=== PATIENT | female | born 1955 | race Caucasian/White ===

== ENCOUNTER → 2024-11-19 | Outpatient (CLI) | payer MEDICARE, MEDICAID, SELFPAY ==
--- NOTE | 2024-11-19 08:30 | XR_ITS ---
Examination: Screening digital mammography, bilateral Computer aided detection 3-D breast Tomosynthesis, bilateral Date and time of exam: November 19, 2024 0806 hrs. Compared to mammograms dating to June 08, 2017 Indication: Screening Technique: Nonmagnified MLO, CC views of the breasts to been obtained, reconstructed from 3-D Tomosynthesis images. R2 computer aided detection program utilized for evaluation of suspicious masses and/or abnormal calcifications. 3-D Tomosynthesis images obtained. Findings: Scattered areas of bilateral granular density. Benign calcifications. No interval suspicious masses Impression: BI-RADS category II: Benign Findings. Recommend 1 year follow-up mammogram.
== END | disposition home or self-care (01) ==
LOC: CDIM 07:55
PROVIDERS: PCP Internal Medicine; Referring Provider Internal Medicine; Visit Provider Internal Medicine
DX: Z12.31 Encounter for screening mammogram for malignant neoplasm of breast (principal); R92.323 Mammographic fibroglandular density, bilateral breasts; R92.1 Mammographic calcification found on diagnostic imaging of breast
CPT/HCPCS: 77063; 77067

== ENCOUNTER 2025-01-04 09:05 | Outpatient (RCR) | payer MEDICARE, MEDICAID, SELFPAY ==
--- NOTE | 2025-01-04 10:10 | CTCFLWUP_ITS ---
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 Patient with squamous SCCA right frontal nasal region underwent right total ethmoidectomy right femi bullosa right medial maxillectomy 08/06/2022 at [place]. Postop XRT as recommended 11/14/2022 via VMAT 5940 cGy completed. PET scan 12/29/[address] scan 01/06/2023 showed only postop changes CT scan 02-24 showed no recurrent tumor but bilateral thyroid nodules noted. At [facility] the ENT thought that this could be watched for the time being. Ultrasound 05/12/2024 2 solid nodules right lobe and 3 solid nodules left lobe. And most recent eval 08/05/2024 at [facility] department had a good checkup. A#! SCCA right frontal nasal region surgery [facility] 08/06/2022 postop XRT 5940 cGy 11/14/2022 A#2. Thus far imaging studies as well as ENT eval no sign of recurrence. A#3. Thyroid nodules noted on CT and ultrasound. CT along with new PET will be ordered. [facility] felt this could be watched for now. A#4. Follow-up in 3 months. Labs ordered by Dr Rg. Cc: Reema Rg MD Electronically signed by: Lui Gillis M.D. 01/04/2025 10:08 AM
== END 2025-01-31 23:59 | disposition home or self-care (01) ==
LOC: SCTC 09:05
PROVIDERS: PCP Internal Medicine; Referring Provider Internal Medicine; Visit Provider Radiology Therapeutic Radiology
DX: Z08 Encounter for follow-up examination after completed treatment for malignant neoplasm (principal); Z85.22 Personal history of malignant neoplasm of nasal cavities, middle ear, and accessory sinuses; Z90.09 Acquired absence of other part of head and neck; Z92.3 Personal history of irradiation; E04.2 Nontoxic multinodular goiter
CPT/HCPCS: 99213; G0463

== ENCOUNTER → 2025-01-25 | Outpatient (CLI) | payer MEDICARE, MEDICAID, SELFPAY ==
[2025-01-25 10:20] LABS: Basophils % (Auto) 1 % (0-2.5); Eosinophils # (Auto) 0.1 Thou/mm3 (0.0-0.5); Eosinophils % (Auto) 2 % (0-10); Immature Granulocytes % (Auto) 0 % (0-0); Immature Granulocytes Auto 0.02 Thou/mm3 (0.00-0.00); Lymphocytes # (Auto) 2.4 Thou/mm3 (1.0-4.8); Lymphocytes % (Auto) 32 % (10-50); Mean Corpuscular HGB Conc 33.3 g/dl (31.0-37.0); Mean Corpuscular Hemoglobin 29.6 pg (25.0-35.0); Mean Corpuscular Volume 89 fL (80-100); Monocytes # (Auto) 0.5 Thou/mm3 (0.0-0.8); Monocytes % (Auto) 7 % (0-12); Neutrophils # (Auto) 4.4 Thou/mm3 (1.8-7.7); Neutrophils % (Auto) 59 % (37-80); Nucleated Red Blood Cell % 0 /100 WBC (0); Platelet Count 264 Thou/mm3 (140-440); RDW Standard Deviation 43.8 fL (36.4-46.3); Red Blood Count 4.39 Miln/mm3 (4.00-5.20); White Blood Count 7.5 Thou/mm3 (3.6-11.0)
[2025-01-25 10:28] LABS: Iron 59 mcg/dL (50-170); Total Iron Binding Capacity 307 mcg/dL (250-425)
[2025-01-25 10:33] LABS: Alanine Aminotransferase 14 U/L (10-49); Albumin, Serum 4.2 gm/dL (3.4-4.8); Albumin/Globulin Ratio 1.9 (1.2-2.2); Alkaline Phosphatase 83 U/L (46-116); Anion Gap 9 (7-16); Aspartate Amino Transferase 17 U/L (0-34); BUN/Creatinine Ratio 15 Ratio (12-20); Bilirubin,Total 0.5 mg/dL (0.3-1.2); Blood Urea Nitrogen 15 mg/dL (9-23); Calcium 9.5 mg/dL (8.3-10.6); Calcium (Corrected) 9.5 mg/dL (8.5-10.1); Carbon Dioxide 25.9 mMol/L (20.0-31.0); Cardiac Risk Estimate 2.7 RATIO (3.7-5.6); Chloride 105 mMol/L (98-107); Cholesterol 140 mg/dL (132-200); Free T4 (Free Thyroxine) 1.18 ng/dL (0.89-1.76); Globulin 2.2 gm/dL (2.3-3.5); Glucose 94 mg/dL (74-106); HDL Cholesterol 52 mg/dL (40-60); LDL Cholesterol,Calculated 66 mg/dL (0-130); Magnesium 1.9 mg/dL (1.6-2.6); Osmolality,Calculated 280 (275-295); Phosphorous 2.7 mg/dL (2.4-5.1); Potassium 4.1 mMol/L (3.4-5.1); Sodium 140 mMol/L (136-145); Total Protein 6.4 gm/dL (5.7-8.2); Triglycerides 109 mg/dL (30-150); eGFR > 60 See Note
[2025-01-25 10:36] LABS: Vitamin B12 > 2000 pg/mL (211-911); Vitamin D 25 Hydroxy Total 54.2 ng/mL (7.3-40.2)
[2025-01-25 11:54] LABS: Sed Rate (ESR) 10 mm/hr (0-30)
[2025-01-31 07:04] LABS: T3, Reverse, LC/MS/MS* 22 ng/dL (8-25); T3,Total* 130 ng/dL (76-181)
== END | disposition home or self-care (01) ==
PROVIDERS: PCP Internal Medicine; Referring Provider Internal Medicine; Visit Provider Internal Medicine
DX: I10 Essential (primary) hypertension (principal); R53.83 Other fatigue; R13.10 Dysphagia, unspecified; E04.2 Nontoxic multinodular goiter; Z85.819 Personal history of malignant neoplasm of unspecified site of lip, oral cavity, and pharynx
CPT/HCPCS: 36415; 80053; 80061; 82306; 82607; 83540; 83550; 83735; 84100; 84439; 84443; 84480; 84482; 85025; 85652

== ENCOUNTER → 2025-02-04 | Outpatient (CLI) | payer MEDICARE, MEDICAID, SELFPAY ==
--- NOTE | 2025-02-04 15:30 | XR_ITS ---
Examination: CT soft tissue neck, with intravenous contrast. 2-D coronal reconstructions. 2-D sagittal reconstructions. Date and time of exam :February 04, 2025 1451 hours COMPARISON: February 03, 2024 INDICATIONS: Diagnosis malignant neoplasm frontal sinus diagnosis 2021, postsurgical removal and radiation therapy. CTDI: vol (mGy):9.43 DLP: (mGycm):278 Technique: 1.25 mm axial sections of the neck of the obtained. Coronal and sagittal reconstructions have been obtained. Intravenous contrast administered 50 cc Isovue-370. Low dose protocols were performed. One or more of the following dose reduction techniques were used; automated exposure control, adjustment of the mA and/or KV according to patient size, use of iterative reconstruction technique. Findings: Trace mucosal thickening in the frontal air cells No frontal air cell mass Intact cranial vault Optic globes exhibit symmetry Fluid level in the left maxillary antrum Surgical resection medial wall right maxillary antrum nodular mucosal disease in the lower right maxillary antrum Mandible maxilla intact IMPRESSION: No soft tissue frontal air cell tumor mass is depicted Again noted bilateral thyroid nodules
== END | disposition home or self-care (01) ==
LOC: CCTX 13:51
PROVIDERS: PCP Internal Medicine; Referring Provider Radiology Therapeutic Radiology; Visit Provider Radiology Therapeutic Radiology
DX: E04.2 Nontoxic multinodular goiter (principal); C31.2 Malignant neoplasm of frontal sinus
CPT/HCPCS: 70491; A4649; Q9967

== ENCOUNTER → 2025-02-25 | Outpatient (CLI) | payer MEDICARE, MEDICAID, SELFPAY ==
--- NOTE | 2025-02-25 13:00 | XR_ITS ---
Examination: Thyroid sonography complete TECHNIQUE: Grayscale sonographic images thyroid lobes Exam date and time: February 25, 2025 1234 hours INDICATIONS: Thyroid sonogram August 04, 2024 right thyroid upper pole nodule 14 mm left thyroid upper pole nodule 9 mm midpole nodule 6 mm lower pole nodule 8 mm FINDINGS: Right thyroid 4.4 cm Upper pole nodules 15 x 12 mm, 7 x 6 mm Left thyroid 4.7 cm Upper pole nodules, the largest 7 x 4 mm Midpole nodules, the largest 7 x 6 mm Lower pole nodules, the largest 8 x 7 mm IMPRESSION: Multiple bilateral solid thyroid nodules as above, consider ultrasound-guided fine-needle aspiration of the largest nodule in the upper right thyroid lobe
== END | disposition home or self-care (01) ==
PROVIDERS: PCP Internal Medicine; Referring Provider Internal Medicine; Visit Provider Internal Medicine
DX: E04.2 Nontoxic multinodular goiter (principal)
CPT/HCPCS: 76536

== ENCOUNTER 2025-03-22 14:29 | Outpatient (RCR) | payer MEDICARE, MEDICAID, SELFPAY ==
--- NOTE | 2025-03-24 14:17 | CTCFLWUP_ITS ---
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 Patient with SCCA right frontal nasal region underwent right total ethmoidectomy right femi bullosa resection right medial maxillectomy 08/06/2022 at [place] Postop XRT as recommended 11/14/2022 via VMAT 5940 cGy completed Evaluated [facility] head [facility] neck surgery 08/25/2024 no sign of recurrence. Most recent PET scan 01/14/2025 essentially stable with no evidence of recurrent or metastatic frontal sinus malignancy. CT of face neck February 04, 2025 no sign of recurrence but bilateral thyroid nodules noted. Prior ultrasound revealed 2 solid nodules in the right lobe and 3 solid nodule the left lobe which has been brought to the attention to doctors at [facility]. Patient states that she been having more trouble swallowing and is also concerned about the persistent if not the growth of the thyroid nodules. Examined her thyroid area and felt the small nodules along with the examining the oral cavity nasal region which was essentially unremarkable. Assessment.#1. SCCA right frontal nasal region status post surgery postop XRT completed 11/14/2022. No sign of recurrence clinically and on recent radiographs. Patient will be seeing doctors at [place] in May. #2. thyroid nodules persistent possibly growing. Patient to see Dr Rg about a possible ENT referral./Biopsy of the nodules. #3. I will see her again in 4 months time. Electronically signed by: Lui Gillis M.D. 03/22/2025 3:03 PM
== END 2025-04-02 23:59 | disposition home or self-care (01) ==
LOC: SCTC 14:29
PROVIDERS: PCP Internal Medicine; Referring Provider Internal Medicine; Visit Provider Radiology Therapeutic Radiology
DX: C31.2 Malignant neoplasm of frontal sinus (principal); Z90.09 Acquired absence of other part of head and neck; Z92.3 Personal history of irradiation; E04.1 Nontoxic single thyroid nodule
CPT/HCPCS: 99212; G0463

== ENCOUNTER 2025-07-21 09:15 | Outpatient (RCR) | payer MEDICARE, MEDICAID, SELFPAY ==
--- NOTE | 2025-07-21 09:58 | CTCFLWUP_ITS ---
[facility] 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 Patient with SCCA frontal right nasal region underwent right total ethmoidectomy right femi bullosa resection right medial maxillectomy 08/06/2022 at [facility] [facility]. Postop XRT as recommended 11/14/2022 completed via VMAT 5940 cGy completed. Evaluated at [facility] head and neck surgery 08/05/2024 no sign of recurrence. Most recent PET 01/14/2025 essentially unremarkable for any recurrence or mets. Had appointment at [facility] [facility] in May with no sign of recurrence according to patient. CT neck 02/04/2025 no sign of recurrence. Bilateral thyroid nodules noted. Noted also in prior ultrasound of the neck. Reportedly had a biopsy of a thyroid nodule not revealing any cancer. Assessment #1 SCCA right frontal nasal region right total thyroidectomy right femi bullosa resection right medial maxillectomy 08/06/2022 [facility]. #2. Postop XRT 5940 cGy via VMAT completed 11/14/2022. #3. thyroid nodule negative biopsy according the patient. #4. Imaging studies and [facility]NT eval no sign of recurrence thus far. #5 patient taking gabapentin for pain. Will see patient again in 4 months time. Electronically signed by: Lui Gillis M.D. 07/21/2025 9:56 AM
== END 2025-08-02 23:59 | disposition home or self-care (01) ==
LOC: SCTC 09:15
PROVIDERS: PCP Internal Medicine; Referring Provider Internal Medicine; Visit Provider Radiology Therapeutic Radiology
DX: Z08 Encounter for follow-up examination after completed treatment for malignant neoplasm (principal); Z85.22 Personal history of malignant neoplasm of nasal cavities, middle ear, and accessory sinuses; Z92.3 Personal history of irradiation; Z90.09 Acquired absence of other part of head and neck; E04.1 Nontoxic single thyroid nodule
CPT/HCPCS: 99213; G0463